=== PATIENT | female | born 1995 | race Caucasian/White ===

== ENCOUNTER → 2018-09-25 | Outpatient (CLI) | payer OTHER, SELFPAY ==
[2018-09-25 15:46] VITALS: BMI 29.0
[2018-09-25 21:39] LABS: Chlamydia Trachomatis by PCR Negative (Negative); Neisserai gonorrhoeae by PCR Negative (Negative); Probe Check PASS; Sample Adequacy Control PASS; Specimen Processing Control PASS
== END | disposition home or self-care (01) ==
PROVIDERS: Referring Provider Nurse Practitioner Women's Health; Visit Provider Nurse Practitioner Women's Health
DX: Z11.3 Encounter for screening for infections with a predominantly sexual mode of transmission (principal)
CPT/HCPCS: 87491; 87591

== ENCOUNTER → 2020-10-15 10:47 | Outpatient (CLI) | payer BC, SELFPAY ==
[2018-09-25 15:46] VITALS: BMI 29.0
[2020-10-15 12:19] LABS: Absolute Eosinophil Count 0.15 X10^3/uL (0.0-0.23)
[2020-10-20 20:09] LABS: Immunoglobulin A 62 mg/dL (87-352); Immunoglobulin G 846 mg/dL (586-1602); Immunoglobulin M 96 mg/dL (26-217)
[2020-10-20 20:47] LABS: Immunoglobulin E 5 IU/mL (6-495)
== END ==
DX: J33.9 Nasal polyp, unspecified (principal)
CPT/HCPCS: 36415; 82784; 82785; 85048

== ENCOUNTER → 2020-10-16 17:53 | Outpatient (CLI) | payer BC, SELFPAY ==
[2018-09-25 15:46] VITALS: BMI 29.0
--- NOTE | 2020-10-16 18:02 | CT_ITS ---
STUDY: CT FACIAL BONES WITHOUT CONTRAST REASON FOR EXAM: Female, 25 years old. Nasal polyps, cleft palate, allergies RADIATION DOSAGE (If Supplied By Facility): CTDIvol = ( 33.06 ) mGy, DLP = ( 776.00 ) mGycm TECHNIQUE: The patient was scanned in a multi detector CT scanner. Sagittal and coronal images were reconstructed. Individualized dose optimization techniques were used for this CT. COMPARISON: None. FINDINGS: Skull base is intact. Facial bones are intact. Orbits are normal. Paranasal sinuses and nasal cavity are clear. There are no polyps. There is leftward deviation of the nasal septum with 4 mm osseous spur and mild narrowing of the left nasal passage. There is midline anterior deficiency/cleft of the horizontal palate. Upper airway is patent. CT/Sinus/Facial Bone IMPRESSION: 1. Clear nasal cavity/paranasal sinuses. No polyposis. 2. Small left nasal septal spur. Electronically Signed: Carlos Noland MD at 18:53 EDT Tel , Service support ,
== END ==
DX: J33.9 Nasal polyp, unspecified (principal)
CPT/HCPCS: 70486

== ENCOUNTER → 2022-04-18 | Outpatient (CLI) | payer BC, SELFPAY | END | disposition home or self-care (01) | PROVIDERS: Referring Provider Obstetrics & Gynecology; Visit Provider Obstetrics & Gynecology | DX: R10.2 Pelvic and perineal pain (principal) | CPT/HCPCS: 87070; 87205 ==

== ENCOUNTER → 2022-08-01 | Outpatient (CLI) | payer BC, SELFPAY | END | disposition home or self-care (01) | LOC: LABSPEC 16:52 | PROVIDERS: Referring Provider Obstetrics & Gynecology; Visit Provider Obstetrics & Gynecology | DX: N94.819 Vulvodynia, unspecified (principal); G58.8 Other specified mononeuropathies | CPT/HCPCS: 87070; 87205 ==

== ENCOUNTER 2022-11-08 17:25 | Outpatient (CLI) | payer BC, SELFPAY ==
[2022-11-10 22:06] LABS: Chlamydia By Nucleic Acid AMP Negative (Negative); Gonococcus By Nucleic Acid AMP Negative (Negative)
[2022-11-17 22:07] LABS: HPV APTIMA, High Risk Negative (Negative)
[2022-11-18 09:48] LABS: HPV Reflexed? YES, CHARGE PATIENT
== END 2022-11-08 23:59 | disposition home or self-care (01) ==
PROVIDERS: Referring Provider Obstetrics & Gynecology; Visit Provider Obstetrics & Gynecology
DX: Z12.4 Encounter for screening for malignant neoplasm of cervix (principal); R05.9 Cough, unspecified; B37.31 Acute candidiasis of vulva and vagina; Z20.2 Contact with and (suspected) exposure to infections with a predominantly sexual mode of transmission
CPT/HCPCS: 87070; 87205; 87491; 87591; 87624; 88175; G0145